=== PATIENT | female | born 1990 | race Caucasian/White ===

== ENCOUNTER 2024-03-23 17:05 | Emergency (ER) | payer BC, MEDICAID ==
[~2024-03-23] VITALS: Ht 165.1 cm; Wt 75.0 kg
[2024-03-23 17:14] VITALS: O2SAT 97
[2024-03-23] MEDS ORDERED: DICYCLOMINE 10 MG/5 ML ORAL SYR PO STA (17:59)
[2024-03-23 18:15] LABS: BASOPHILS % 0.7 % (0.0-2.0); EOSINOPHILS % 2.6 % (0.0-5.0); HEMATOCRIT. 39.5 % (36.0-48.0); HEMOGLOBIN. 13.2 g/dL (12.0-16.0); LYMPHOCYTES % 20.5 % (20.0-50.0); MEAN CORPUSCULAR HEMOGLOBIN 29.5 pg (28.0-32.0); MEAN CORPUSCULAR HGB CONC 33.3 g/dL (31.0-37.0); MEAN CORPUSCULAR VOLUME 88.5 fL (81.0-99.0); MEAN PLATELET VOLUME 9.3 fl (7.4-10.4); MONOCYTES % 9.8 % (2.0-8.0); NEUTROPHILS % 66.4 % (40.0-76.0); PLATELET 282 x1000/uL (130-400); RED BLOOD CELL COUNT 4.47 mill/uL (4.2-5.4); RED CELL DISTRIBUTION WIDTH 13.2 % (11.6-14.6); WHITE BLOOD COUNT 10.1 x1000/uL (4.5-11.0)
[2024-03-23 18:18] LABS: CHLORIDE 107 mEq/L (98-107); POTASSIUM 3.9 mEq/L (3.5-5.1); SODIUM 140 mEq/L (136-145)
[2024-03-23 18:19] LABS: CARBON DIOXIDE 24 mEq/L (21-32)
[2024-03-23 18:20] LABS: CALCIUM 9.2 mg/dL (8.7-10.4)
[2024-03-23 18:24] LABS: CREATININE 0.8 mg/dL (0.6-1.0); GLUCOSE 89 mg/dL (70-105)
[2024-03-23 18:25] LABS: UREA NITROGEN BLOOD 9 mg/dL (9-23)
[2024-03-23 18:26] LABS: ALANINE AMINOTRANSFERASE 64 IU/L (10-49); ASPARTATE AMINOTRANSFERASE 34 IU/L (<34)
[2024-03-23 18:27] LABS: ALBUMIN 4.1 g/dL (3.2-4.8); BILIRUBIN TOTAL 0.4 mg/dL (0.1-1.0); PROTEIN TOTAL 7.3 g/dL (6.0-8.3)
[2024-03-23 18:32] LABS: HCG SCREEN NEGATIVE
[2024-03-23 18:43] LABS: BILIRUBIN DIRECT < 0.1 mg/dL (<=3.0)
[2024-03-23 19:24] LABS: CLARITY URINE CLEAR (CLEAR); COLOR URINE YELLOW (YELLOW); GLUCOSE URINE NEGATIVE (NEGATIVE); KETONES URINE NEGATIVE (NEGATIVE); LEUKOCYTE ESTERASE URINE 1+ (NEGATIVE); NITRITE URINE NEGATIVE (NEGATIVE); OCCULT BLOOD URINE 1+ (NEGATIVE); PH URINE 6.5 (4.5-8.0); PROTEIN URINE TRACE (NEGATIVE); SPECIFIC GRAVITY URINE 1.031 (1.005-1.030)
[2024-03-23] MEDS: DICYCLOMINE HCL 10MG CAPSULE PO NR (19:33)
[2024-03-23] MEDS: MAGNESIUM/ALUMINUM HYDROXIDE/SIMETHICONE 30ML UDC PO STA (19:34)
[2024-03-23] MEDS: ONDANSETRON 4MG ODT PO STA (19:34)
[2024-03-23] MEDS: ACETAMINOPHEN 325MG TABLET PO ONE (19:34)
[2024-03-23 19:49] LABS: BACTERIA URINE TRACE; SQUAMOUS EPITHELIAL CELL URINE 2+ /lpf (RARE/1+)
[2024-03-23] MEDS ORDERED: ONDA4TAB50 PO (19:51)
[2024-03-23] MEDS ORDERED: NITR100C PO (19:52)
[2024-03-23 20:14] VITALS: BP 121/77; PULSE 82; RESP 18; TEMP 36.89184; O2SAT 98
== END 2024-03-23 20:15 | disposition home or self-care (01) ==
LOC: ER 17:05
DX: N39.0 Urinary tract infection, site not specified (principal); F19.90 Other psychoactive substance use, unspecified, uncomplicated; Z98.890 Other specified postprocedural states
CPT/HCPCS: 99284; 80076; 80048; 81003; 81025; 84703; 85025; 36415; Q0162

== ENCOUNTER 2024-11-21 11:15 | Emergency (ER) | payer BC, OTHER ==
[~2024-11-21] VITALS: Ht 157.5 cm; Wt 77.0 kg
[~2024-11-21 11:15] MED LIST: NITR100C PO; ONDA4TAB50 PO
[2024-11-21 11:20] VITALS: O2SAT 98
[2024-11-21 12:31] LABS: BASOPHILS % 0.8 % (0.0-2.0); EOSINOPHILS % 1.8 % (0.0-5.0); HEMATOCRIT. 38.9 % (36.0-48.0); HEMOGLOBIN. 13.2 g/dL (12.0-16.0); LYMPHOCYTES % 15.7 % (20.0-50.0); MEAN PLATELET VOLUME 8.9 fl (7.4-10.4); MONOCYTES % 8.7 % (2.0-8.0); NEUTROPHILS % 73.0 % (40.0-76.0); PLATELET 273 x1000/uL (130-400); RED BLOOD CELL COUNT 4.37 mill/uL (4.2-5.4); RED CELL DISTRIBUTION WIDTH 12.8 % (11.6-14.6)
[2024-11-21] MEDS: IBUPROFEN 600MG TABLET PO ONE (12:35)
[2024-11-21] MEDS: DEXAMETHASONE 10 MG/ML VIAL PO ONE (12:35)
[2024-11-21 12:49] LABS: CREATININE 0.8 mg/dL (0.6-1.0)
[2024-11-21 12:50] LABS: TROPONIN I HIGH SENSITIVITY < 4 ng/L (3.0-34); UREA NITROGEN BLOOD 8 mg/dL (9-23)
[2024-11-21 13:07] LABS: HCG SCREEN NEGATIVE
[2024-11-21 14:47] VITALS: BP 112/78; PULSE 80; RESP 16; TEMP 36.7; O2SAT 99
[2024-11-21] MEDS ORDERED: IBUP-2029 MT (14:53)
[2024-11-21] MEDS ORDERED: BENZ1LOZ73 MT (14:53)
== END 2024-11-21 15:10 | disposition home or self-care (01) ==
LOC: ER 11:15
DX: J35.1 Hypertrophy of tonsils (principal); R07.89 Other chest pain; Z98.890 Other specified postprocedural states
CPT/HCPCS: 80048; 81025; 84703; 87430; 85025; 84484; 87070; 36415; 71045; 93005; 99285; J1100; Z7610

== ENCOUNTER 2025-02-09 17:58 | Emergency (ER) | payer OTHER ==
[~2025-02-09] VITALS: Ht 165.1 cm; Wt 73.0 kg
[~2025-02-09 17:58] MED LIST changes: +BENZ1LOZ73 MT; +IBUP-1455 MT
[2025-02-09 18:00] VITALS: O2SAT 100
[2025-02-09 18:03] VITALS: BP 108/55; PULSE 75; RESP 15; TEMP 36.9; O2SAT 97
[2025-02-09] MEDS: ONDANSETRON 4MG ODT PO ONE (19:25)
[2025-02-09] MEDS: FAMOTIDINE 20MG TABLET PO ONE (19:25)
[2025-02-09 19:33] LABS: CLARITY URINE CLOUDY (CLEAR); COLOR URINE DARK YELLOW (YELLOW); GLUCOSE URINE NEGATIVE (NEGATIVE); KETONES URINE 1+ (NEGATIVE); LEUKOCYTE ESTERASE URINE 3+ (NEGATIVE); NITRITE URINE NEGATIVE (NEGATIVE); OCCULT BLOOD URINE 3+ (NEGATIVE); PH URINE 5.5 (4.5-8.0); PROTEIN URINE 1+ (NEGATIVE); SPECIFIC GRAVITY URINE 1.036 (1.005-1.030); UROBILINOGEN URINE 1.0 E.U./dL (0.2-1.0)
[2025-02-09 19:46] LABS: BACTERIA URINE 1+; SQUAMOUS EPITHELIAL CELL URINE 2+ /lpf (RARE/1+)
[2025-02-09 19:49] LABS: BASOPHILS % 0.8 % (0.0-2.0); EOSINOPHILS % 1.7 % (0.0-5.0); HEMATOCRIT. 39.8 % (36.0-48.0); HEMOGLOBIN. 13.3 g/dL (12.0-16.0); LYMPHOCYTES % 25.7 % (20.0-50.0); MEAN PLATELET VOLUME 10.1 fl (7.4-10.4); MONOCYTES % 8.7 % (2.0-8.0); NEUTROPHILS % 63.1 % (40.0-76.0); PLATELET 270 x1000/uL (130-400); RED BLOOD CELL COUNT 4.47 mill/uL (4.2-5.4); RED CELL DISTRIBUTION WIDTH 12.7 % (11.6-14.6)
[2025-02-09 20:01] LABS: HCG SCREEN NEGATIVE
[2025-02-09 20:04] LABS: CREATININE 0.8 mg/dL (0.6-1.0); UREA NITROGEN BLOOD 13 mg/dL (9-23)
[2025-02-09 20:06] LABS: ASPARTATE AMINOTRANSFERASE 24 IU/L (<34); BILIRUBIN DIRECT 0.2 mg/dL (<=3.0); BILIRUBIN TOTAL 0.5 mg/dL (0.1-1.0); PROTEIN TOTAL 7.6 g/dL (6.0-8.3)
[2025-02-09] MEDS ORDERED: LOPE2CAP MT (21:14)
[2025-02-09] MEDS ORDERED: LACT1CAP78 MT (21:14)
[2025-02-09] MEDS ORDERED: FAMO-135 MT (21:14)
== END 2025-02-09 22:15 | disposition home or self-care (01) ==
LOC: ER 17:58
DX: K52.9 Noninfective gastroenteritis and colitis, unspecified (principal); R11.10 Vomiting, unspecified
CPT/HCPCS: 99284; 74176; 80076; 80048; 81003; 81025; 84703; 83690; 85025; 36415; Q0162